=== PATIENT | male | born 1970 | race Two or more races ===

== ENCOUNTER 2024-01-08 12:48 | Outpatient (CLI) | payer OTHER ==
[~2024-01-08 12:48] MED LIST: AMOX1TAB12 PO; APRESOLINE PO; Aldactone 25 MG TABLET PO; BENTYL10 MG/ML IM; CIPRO100 MG PO; Coreg PO; DIGOXIN 0.125 MG PO; FLEXERIL5 MG PO; INTEGRA PLUS CAPSULE PO; IOPHEN DM-100 MG/5 M PO; LASIX 40 MG PO; MICRO K PO; Neurin-Sl Tablet Sl SL; PRE-PROTEIN (20) PO; PULMICORT1 MG/2 ML IH; Protonix PO; Slow-Mag PO; TESSALON200 MG PO; VASOTEC 20MG TAB PO; ZAROXOLYN2.5 M1 PO
== END 2024-01-08 12:55 | disposition home or self-care (01) ==
LOC: TOM 12:48
PROVIDERS: ATTEND Internal Medicine Cardiovascular Disease
DX: C45.9 Mesothelioma, unspecified (principal)